=== PATIENT | male | born 1980 | race Caucasian/White ===

== ENCOUNTER 2016-10-01 08:34 | Emergency (ER) | payer MEDICAID ==
[~2016-10-01] VITALS: Ht 177.8 cm; Wt 74.0 kg
[~2016-10-01 08:34] MED LIST: AMOX1TAB64 PO; GABA300C10 PO; NICO1PAT10 TD; OXYC5TAB3 PO
[2016-10-01 08:36] VITALS: BP 104/66
[2016-10-01] MEDS ORDERED: KETOROLAC 30 MG/1 ML IM ONE (09:00)
[2016-10-01] MEDS ORDERED: CARBAMIDE PEROXIDE EAR DROPS 6.5%, 15ML RIGHT EAR ONE (09:00)
[2016-10-01] MEDS ORDERED: LIDOCAINE 1%, 20ML ONE (09:58)
[2016-10-01] MEDS ORDERED: BENZOCAINE 20% SPRAY 0.5ML ONE (09:58)
[2016-10-01] MEDS ORDERED: CARBAMIDE PEROXIDE EAR DROPS 6.5%, 15ML ONE (10:25)
[2016-10-01] MEDS ORDERED: KETOROLAC 30 MG/1 ML ONE (10:25)
[2016-10-01] MEDS ORDERED: OXYcodone/APAP 5/325MG TABLET ONE (11:56)
[2016-10-01] MEDS ORDERED: OXYcodone/APAP 5/325MG TABLET PO ONE (12:00)
== END 2016-10-01 12:09 | disposition home or self-care (01) ==
LOC: ED 12:00
DX: H61.21 Impacted cerumen, right ear (principal); M79.641 Pain in right hand; M79.671 Pain in right foot; F17.200 Nicotine dependence, unspecified, uncomplicated
CPT/HCPCS: 69210; 73130; 73630; 96372; 99284; J1885

== ENCOUNTER 2020-10-28 20:39 | Inpatient (IN) | payer MEDICAID ==
[~2020-10-28] VITALS: Ht 175.3 cm; Wt 87.9 kg
[~2020-10-28 20:39] MED LIST changes: +NICO-485 TD; -NICO1PAT10 TD; -OXYC5TAB3 PO; +OXYC5TAB98 PO
[2020-10-28] MEDS ORDERED: PIPERACILLIN/TAZO 3.375 GM in DEXTROSE 5% 50 ML IVPB ONE (21:30)
[2020-10-28] MEDS ORDERED: VANCOMYCIN 2,000 MG in SODIUM CHLORIDE 0.9% 500 ML IV ONE (21:30)
[2020-10-28] MEDS ORDERED: VANCOMYCIN PER PHARMACY MC ONE (21:30)
[2020-10-28] MEDS ORDERED: SODIUM CHLORIDE 0.9% 1,000ML IVBOLUS ONE (21:30)
[2020-10-28 21:31] LABS: BASOPHILS % (AUTO) 0 % (0-1); EOSINOPHILS % (AUTO) 0 % (1-7); LYMPHOCYTES % (AUTO) 11 % (22-44); MEAN CORPUSCULAR HEMOGLOBIN 31.3 pg (27.5-34.5); MEAN CORPUSCULAR HGB CONC 33.4 g/dL (33.2-36.2); MEAN PLATELET VOLUME 8.9 fL (7.4-10.4); MONOCYTES % (AUTO) 7 % (2-9); NEUTROPHILS % (AUTO) 82 % (42-75); PLATELET COUNT 334 x10^3/uL (130-400); RED BLOOD COUNT 4.45 x10^6/uL (4.38-5.82); RED CELL DISTRIBUTION WIDTH 13.8 % (9.4-14.8)
[2020-10-28 21:41] LABS: ALBUMIN 2.9 g/dL (3.4-5.0); ANION GAP 7 mmol/L (5-15); CALCIUM 8.7 mg/dL (8.5-10.1); CHLORIDE 105 mmol/L (98-107); CREATININE 1.81 mg/dL (0.7-1.3)
[2020-10-28] MEDS ORDERED: DIPH,PERTUSS(ACELL),TET VAC/PF 0.5 ML IM-VACC ONE ×2 (23:30→23:53)
[2020-10-28] MEDS ORDERED: MORPHINE SULFATE 4 MG/ML, 1ML IVPush PRN (23:30)
[2020-10-28] MEDS ORDERED: MORPHINE SULFATE 4 MG/ML, 1ML ONE (23:50)
--- NOTE | 2020-10-29 00:20 | NUR ---
Report to [employer].
[2020-10-29 01:28] VITALS: BP 147/87
[2020-10-29] MEDS ORDERED: VANCOMYCIN PER PHARMACY MC PRN (01:30)
[2020-10-29] MEDS ORDERED: hydrALAzine 20 MG/ML, 1ML IVPush PRN (01:30)
[2020-10-29] MEDS ORDERED: LACTATED RINGERS 1,000 ML IV SCH (01:30)
[2020-10-29] MEDS ORDERED: ONDANSETRON 2MG/ML, 2ML IVPush PRN (01:30)
[2020-10-29] MEDS ORDERED: PHARMACY MAY ADJ FOR RENAL FX MC PRN (01:30)
[2020-10-29 01:59] VITALS: BP 149/80
[2020-10-29] MEDS ORDERED: PHARMACOKINETIC MONITORING MC PRN (02:00)
[2020-10-29 02:07] LABS: BASOPHILS % (AUTO) 0 % (0-1); EOSINOPHILS % (AUTO) 1 % (1-7); LYMPHOCYTES % (AUTO) 10 % (22-44); MEAN CORPUSCULAR HEMOGLOBIN 31.2 pg (27.5-34.5); MEAN CORPUSCULAR HGB CONC 33.1 g/dL (33.2-36.2); MEAN PLATELET VOLUME 8.9 fL (7.4-10.4); MONOCYTES % (AUTO) 8 % (2-9); NEUTROPHILS % (AUTO) 81 % (42-75); PLATELET COUNT 314 x10^3/uL (130-400); RED BLOOD COUNT 3.99 x10^6/uL (4.38-5.82); RED CELL DISTRIBUTION WIDTH 13.6 % (9.4-14.8)
[2020-10-29] MEDS: HEPARIN 5,000 UNITS/ML, 1ML SQ SCH ×3 (03:41→19:43)
[2020-10-29 10:02] VITALS: BP 144/89
[2020-10-29] MEDS: VANCOMYCIN 1,600 MG in SODIUM CHLORIDE 0.9% 250 ML IV SCH ×2 (12:15→23:26)
[2020-10-29 12:52] LABS: MICROSCOPIC AUTO
[2020-10-29 17:32] VITALS: BP 135/81
[2020-10-29 19:41] VITALS: BP 144/93
[2020-10-29] MEDS: NICOTINE 14MG/24 HR PATCH.TD24 TD SCH (21:48)
[2020-10-30 02:44] VITALS: BP 143/89
[2020-10-30] MEDS: HEPARIN 5,000 UNITS/ML, 1ML SQ SCH ×3 (04:22→19:43)
[2020-10-30 07:09] LABS: BASOPHILS % (AUTO) 1 % (0-1); EOSINOPHILS % (AUTO) 2 % (1-7); LYMPHOCYTES % (AUTO) 15 % (22-44); MEAN CORPUSCULAR HEMOGLOBIN 31.5 pg (27.5-34.5); MEAN CORPUSCULAR HGB CONC 33.4 g/dL (33.2-36.2); MONOCYTES % (AUTO) 11 % (2-9); NEUTROPHILS % (AUTO) 71 % (42-75); PLATELET COUNT 337 x10^3/uL (130-400); RED BLOOD COUNT 4.06 x10^6/uL (4.38-5.82); RED CELL DISTRIBUTION WIDTH 14.1 % (9.4-14.8)
[2020-10-30 07:11] LABS: HCT (SEDRATE) 38.7 % (39.2-51.8)
[2020-10-30 07:19] LABS: CHLORIDE 108 mmol/L (98-107)
[2020-10-30 07:31] LABS: ALANINE AMINOTRANSFERASE 26 U/L (12-78); ALBUMIN 2.1 g/dL (3.4-5.0); ALKALINE PHOSPHATASE 87 U/L (45-117); ANION GAP 5 mmol/L (5-15); BILIRUBIN,TOTAL 0.2 mg/dL (0.2-1.0); CREATININE 2.08 mg/dL (0.7-1.3); TOTAL PROTEIN 6.7 g/dL (6.4-8.2)
[2020-10-30 08:01] VITALS: BP 155/95
[2020-10-30 13:42] VITALS: BP 149/76
[2020-10-30] MEDS ORDERED: SODIUM CHLORIDE 0.9% 1,000 ML IV SCH (16:00)
[2020-10-30 18:53] VITALS: BP 148/90
[2020-10-30] MEDS: NICOTINE 14MG/24 HR PATCH.TD24 TD SCH (21:32)
[2020-10-31 01:34] VITALS: BP 161/93
[2020-10-31] MEDS: HEPARIN 5,000 UNITS/ML, 1ML SQ SCH ×2 (04:51→11:46)
[2020-10-31 05:29] LABS: BASOPHILS % (AUTO) 1 % (0-1); EOSINOPHILS % (AUTO) 3 % (1-7); LYMPHOCYTES % (AUTO) 17 % (22-44); MEAN CORPUSCULAR HEMOGLOBIN 31.9 pg (27.5-34.5); MEAN CORPUSCULAR HGB CONC 33.8 g/dL (33.2-36.2); MONOCYTES % (AUTO) 8 % (2-9); NEUTROPHILS % (AUTO) 72 % (42-75); PLATELET COUNT 390 x10^3/uL (130-400); RED BLOOD COUNT 4.09 x10^6/uL (4.38-5.82); RED CELL DISTRIBUTION WIDTH 13.8 % (9.4-14.8)
[2020-10-31 05:36] LABS: CHLORIDE 108 mmol/L (98-107)
[2020-10-31 05:42] LABS: ANION GAP 5 mmol/L (5-15); CALCIUM 8.2 mg/dL (8.5-10.1); CREATININE 1.93 mg/dL (0.7-1.3); VANCOMYCIN,RANDOM 22.8 mcg/mL
[2020-10-31 07:56] VITALS: BP 172/96
[2020-10-31] MEDS ORDERED: VANCOMYCIN 1,700 MG in SODIUM CHLORIDE 0.9% 250 ML IV SCH (10:00)
[2020-10-31] MEDS ORDERED: CEPH-376 PO (11:02)
== END 2020-10-31 12:51 | disposition home or self-care (01) | DRG 603 ==
LOC: ED 21:00 → EDIP 10-29 00:48 → 3N 10-29 01:05
PROVIDERS: ADMIT Internal Medicine; ATTEND Family Medicine
DX: L03.115 Cellulitis of right lower limb (principal); F15.90 Other stimulant use, unspecified, uncomplicated; I10 Essential (primary) hypertension; F17.200 Nicotine dependence, unspecified, uncomplicated; F32.9 Major depressive disorder, single episode, unspecified; Z59.0 Homelessness; Z79.899 Other long term (current) drug therapy
CPT/HCPCS: 36415; 80048; 80053; 80202; 81001; 82040; 83036; 83605; 83735; 84100; 85025; 85651; 86140; 86803; 87040; 87081; 87806; 90715; 96365; 96375; 99285; G0378; J1644; J2543; J3370; G0475; J2270; J7030; J7040; J7050; J7120